=== PATIENT | female | born 1960 | race American Indian/Alaskan Native ===

== ENCOUNTER 2021-02-09 10:29 | Outpatient (CLI) | payer MEDICARE ==
--- NOTE | 2021-02-09 11:25 | XRay Report ---
CHEST PA AND LATERAL VIEWS INDICATION: SARCOIDOSIS. COMPARISON: None. FINDINGS: Support devices: None. Heart: Within normal limits. Mediastinal contour is normal. Lungs/Pleura: No acute pulmonary or pleural findings. IMPRESSION: 1. No significant abnormality. Signer Name: Marcos Robles MD Signed: 02/09/2021 11:21 AM Workstation Name: [id number]
== END 2021-02-09 10:30 | disposition home or self-care (01) ==
LOC: XRAY 10:29
PROVIDERS: ATTEND Internal Medicine
DX: D86.9 Sarcoidosis, unspecified (principal); R10.84 Generalized abdominal pain; Z79.899 Other long term (current) drug therapy
CPT/HCPCS: 36415; 71046; 74177; 80053; 81001; 82164; 84436; 84443; 85025; 87086; Q9967

== ENCOUNTER 2021-02-09 11:28 | Emergency (ER) | payer MEDICARE ==
[2021-02-09 11:35] VITALS: BP 148/82
[2021-02-09 12:22] LABS: Basophils # (Auto) 0.1 K/mm3 (0.0-0.1); Eosinophils # (Auto) 0.2 K/mm3 (0.0-0.4); Eosinophils % (Auto) 3.1 % (0.0-4.3); Hematocrit 42.8 % (30.3-42.9); Hemoglobin 14.1 gm/dl (10.1-14.3); Lymphocytes # (Auto) 1.7 K/mm3 (1.2-5.4); Lymphocytes % (Auto) 32.9 % (13.4-35.0); Mean Corpuscular HGB Conc 33 % (30-34); Mean Corpuscular Volume 88 fl (79-97); Monocytes # (Auto) 0.5 K/mm3 (0.0-0.8); Monocytes % (Auto) 10.7 % (0.0-7.3); Platelet Count 229 K/mm3 (140-440); Red Blood Count 4.87 M/mm3 (3.65-5.03); Red Cell Distribution Width 13.7 % (13.2-15.2)
[2021-02-09 12:26] LABS: Bilirubin,Urine NEG (Negative); Blood,Urine MOD (Negative); Color,Urine Yellow (Yellow); Protein,Urine <15 mg/dL mg/dL (Negative); Urobilinogen,Urine < 2.0 mg/dL (<2.0)
[2021-02-09 12:37] LABS: Alanine Aminotransferase 13 units/L (7-56); Albumin 4.5 g/dL (3.9-5); Blood Urea Nitrogen 8 mg/dL (7-17); Calcium 9.9 mg/dL (8.4-10.2); Hemolysis Index 7
[2021-02-09 12:38] LABS: BUN/Creatinine Ratio 13
--- NOTE | 2021-02-09 13:59 | Emergency Department Report ---
ED Abdominal Pain HPI - General Chief Complaint: Abdominal Pain Stated Complaint: STOMACH PAIN/SORENESS IN MOUTH Time Seen by Provider: 02/09/21 12:22 Source: patient Mode of arrival: Ambulatory Limitations: No Limitations - History of Present Illness Initial Comments: Patient is a 60-year-old female presents emergency with complaints of generalized abdominal pain that began a month ago. She states it is causing her to have a decreased appetite. She states that occasionally the pain is worse after eating. She states that she has asked medical history of GERD and had a scope performed approximately 3 years ago. She states that she has been taking omeprazole for a month without much relief. She denies any fever, nausea, vomiting, diarrhea, hematochezia, melena, hematemesis, urinary symptoms. Past medical history of sarcoidosis and neuropathy. No allergies to medications. She denies any past abdominal surgical history. - Related Data Home Medications Medication Instructions Recorded Confirmed Last Taken Alendronate Sodium 70 mg PO QDAY 10/25/15 10/25/15 Unknown Duloxetine HCl [DULoxetine] 30 mg PO QDAY 10/25/15 10/25/15 Unknown Fluticasone [Flonase] 1 spray NS QDAY 10/25/15 10/25/15 Unknown Previous Rx's Medication Instructions Recorded Last Taken Type Sucralfate [Carafate] 1 gm PO ACHS 7 Days #21 tablet 02/09/21 Unknown Rx cephALEXin [Keflex] 500 mg PO BID 7 Days #14 cap 02/09/21 Unknown Rx Allergies Allergy/AdvReac Type Severity Reaction Status Date / Time No Known Allergies Allergy Verified 02/09/21 11:32 ED Review of Systems ROS: Stated complaint: STOMACH PAIN/SORENESS IN MOUTH Other details as noted in HPI Comment: All other systems reviewed and negative ED Past Medical Hx - Past Medical History Additional medical history: SARCADOSIS, NEUROPATHY - Social History Smoking Status: Never Smoker Substance Use Type: None - Medications Home Medications: Home Medications Medication Instructions Recorded Confirmed Last Taken Type Alendronate Sodium 70 mg PO QDAY 10/25/15 10/25/15 Unknown History Duloxetine HCl [DULoxetine] 30 mg PO QDAY 10/25/15 10/25/15 Unknown History Fluticasone [Flonase] 1 spray NS QDAY 10/25/15 10/25/15 Unknown History Sucralfate [Carafate] 1 gm PO ACHS 7 Days #21 tablet 02/09/21 Unknown Rx cephALEXin [Keflex] 500 mg PO BID 7 Days #14 cap 02/09/21 Unknown Rx ED Physical Exam - General Limitations: No Limitations General appearance: alert, in no apparent distress - Head Head exam: Present: atraumatic, normocephalic - Eye Eye exam: Present: normal appearance - ENT ENT exam: Present: mucous membranes moist - Respiratory Respiratory exam: Present: normal lung sounds bilaterally. Absent: respiratory distress, wheezes, rales, rhonchi, stridor, chest wall tenderness, accessory muscle use, decreased breath sounds, prolonged expiratory - Cardiovascular Cardiovascular Exam: Present: regular rate, normal rhythm, normal heart sounds. Absent: systolic murmur, diastolic murmur, rubs, gallop - GI/Abdominal GI/Abdominal exam: Present: soft, tenderness (generalized upper), normal bowel s ounds. Absent: distended, guarding, rebound, rigid - Neurological Exam Neurological exam: Present: alert, oriented X3 - Psychiatric Psychiatric exam: Present: normal affect, normal mood - Skin Skin exam: Present: warm, dry, intact ED Course Vital Signs 02/09/21 11:34 Temperature 98.2 F Pulse Rate 73 Respiratory 20 Rate Blood Pressure 148/82 O2 Sat by Pulse 100 Oximetry ED Medical Decision Making - Lab Data Result diagrams: 02/09/21 11:52 02/09/21 11:52 Lab Results 02/09/21 02/09/21 02/09/21 Range/Units 11:52 11:52 11:53 WBC 5.1 (4.5-11.0) K/mm3 RBC 4.87 (3.65-5.03) M/mm3 Hgb 14.1 (10.1-14.3) gm/dl Hct 42.8 (30.3-42.9) % MCV 88 (79-97) fl MCH 29 (28-32) pg MCHC 33 (30-34) % RDW 13.7 (13.2-15.2) % Plt Count 229 (140-440) K/mm3 Lymph % (Auto) 32.9 (13.4-35.0) % [place] % (Auto) 10.7 H (0.0-7.3) % Eos % (Auto) 3.1 (0.0-4.3) % Baso % (Auto) 1.0 (0.0-1.8) % Lymph # (Auto) 1.7 (1.2-5.4) K/mm3 [place] # (Auto) 0.5 (0.0-0.8) K/mm3 Eos # (Auto) 0.2 (0.0-0.4) K/mm3 Baso # (Auto) 0.1 (0.0-0.1) K/mm3 Seg Neutrophils % 52.3 (40.0-70.0) % Seg Neutrophils # 2.7 (1.8-7.7) K/mm3 Sodium 141 (137-145) mmol/L Potassium 4.0 (3.6-5.0) mmol/L Chloride 101.7 (98-107) mmol/L Carbon Dioxide 28 (22-30) mmol/L Anion Gap 15 mmol/L BUN 8 (7-17) mg/dL Creatinine 0.6 (0.6-1.2) mg/dL Estimated GFR > 60 ml/min BUN/Creatinine Ratio 13 % Glucose 99 (65-100) mg/dL Calcium 9.9 (8.4-10.2) mg/dL Total Bilirubin 0.40 (0.1-1.2) mg/dL AST 17 (5-40) units/L ALT 13 (7-56) units/L Alkaline Phosphatase 100 (35-129) units/L Total Protein 7.2 (6.3-8.2) g/dL Albumin 4.5 (3.9-5) g/dL Albumin/Globulin Ratio 1.7 % Urine Color Yellow (Yellow) Urine Turbidity Clear (Clear) Urine pH 6.0 (5.0-7.0) Ur Specific [place] 1.014 (1.003-1.030) Urine Protein <15 mg/dl (Negative) mg/dL Urine Glucose (UA) Neg (Negative) mg/dL Urine Ketones Neg (Negative) mg/dL Urine Blood Mod (Negative) Urine Nitrite Neg (Negative) Urine Bilirubin Neg (Negative) Urine Urobilinogen < 2.0 (<2.0) mg/dL Ur Leukocyte Esterase Lg (Negative) Urine WBC (Auto) 21.0 H (0.0-6.0) /HPF Urine RBC (Auto) 13.0 (0.0-6.0) /HPF U Epithel Cells (Auto) < 1.0 (0-13.0) /HPF - Radiology Data Radiology results: report reviewed Ordering Physician: GENO JUAREZ Date of Service: 02/09/21 Procedure(s): CT abdomen pelvis w con Accession Number(s): [id number] cc: GENO JUAREZ CT ABDOMEN AND PELVIS WITH CONTRAST HISTORY: upper abd pain OMNI 300 100 ML COMPARISON: None. TECHNIQUE: Axial CT images were obtained through the abdomen and pelvis after 100 cc of IV contrast. Sagittal and coronal reformatted images. All CT scans at this location are performed using CT dose reduction for ALARA by means of automated exposure control. FINDINGS: CT ABDOMEN: Lung Bases: Clear. Liver: Scattered cysts are noted throughout the liver with the largest measuring 2.5 cm in the left hepatic lobe. No parenchymal disease or mass. Biliary: No significant abnormality. Spleen: No significant abnormality. Unenlarged. Pancreas: No significant abnormality. Adrenals: No significant abnormality. Kidneys: No significant abnormality. Lymphatics: No lymphadenopathy. Vasculature: No significant abnormality. Bowel/Peritoneum: No significant abnormality. No free air. No free fluid. Normal appendix. CT PELVIS: : No significant abnormality. Osseous Structures: Mild levocurvature of the lumbar spine with mild degenerative disc disease at L4-5. Additional Findings: None IMPRESSION: Scattered liver cysts, otherwise, unremarkable exam. No acute process or clear explanation for upper abdominal pain. Signer Name: Roger Verdin Jr, MD Signed: 02/09/2021 2:28 PM Workstation Name: [id number] Transcribed By: TTR Dictated By: ROGER VERDIN JR, MD Electronically Authenticated By: ROGER VERDIN JR, MD Signed Date/Time: 02/09/21 1428 DD/ 1418 TD/TT: Print - Medical Decision Making Patient is a 60-year-old female presents emergency with complaints of generalized abdominal pain that began a month ago. She states it is causing her to have a decreased appetite. She states that occasionally the pain is worse after eating. She states that she has asked medical history of GERD and had a scope performed approximately 3 years ago. She states that she has been taking omeprazole for a month without much relief. She denies any fever, nausea, vomiting, diarrhea, hematochezia, melena, hematemesis, urinary symptoms. Past medical history of sarcoidosis and neuropathy. No allergies to medications. She denies any past abdominal surgical history. Vitals are stable. On exam: Generalized upper abdominal tenderness palpation, no guarding, no rebound, no rigidity, normal bowel sounds, no peritoneal signs. Labs are normal. UA shows evidence of UTI. CT abdomen pelvis without contrast: Scattered liver cysts, otherwise, unremarkable exam. No acute process or clear explanation for upper abdominal pain. Discussed all results with patient answer questions. Patient given prescriptions. Discussed the importance of primary care and GI follow-up. Discussed return precautions. Advised patient Please take medication as prescribed. Increase your water intake. Follow-up with your primary care doctor. Follow-up with a GI doctor. Return to emergency room for any new or worsening symptoms. Critical care attestation.: If time is entered above; I have spent that time in minutes in the direct care of this critically ill patient, excluding procedure time. ED Disposition Clinical Impression: Liver cyst Abdominal pain Qualifiers: Abdominal location: upper abdomen, unspecified Qualified Code(s): R10.10 - Upper abdominal pain, unspecified UTI (urinary tract infection) Qualifiers: Urinary tract infection type: acute cystitis Hematuria presence: without hematuria Qualified Code(s): N30.00 - Acute cystitis without hematuria Disposition: TO HOME OR SELFCARE Is pt being admited?: No Does the pt Need Aspirin: No Condition: Stable Instructions: Abdominal Pain, Adult, Urinary Tract Infection, Adult, [id number], Abdominal Pain (ED) Additional Instructions: Please take medication as prescribed. Increase your water intake. Follow-up with your primary care doctor. Follow-up with a GI doctor. Return to emergency room for any new or worsening symptoms. Prescriptions: Sucralfate [Carafate] 1 gm PO ACHS 7 Days #21 tablet cephALEXin [Keflex] 500 mg PO BID 7 Days #14 cap Referrals: your, primary care doctor [Other] - 2-3 Days your, GI doctor [Other] - 2-3 Days Time of Disposition: 14:47 Print Language: SWAZI
--- NOTE | 2021-02-09 14:43 | Cat Scan Report ---
CT ABDOMEN AND PELVIS WITH CONTRAST HISTORY: upper abd pain OMNI 300 100 ML COMPARISON: None. TECHNIQUE: Axial CT images were obtained through the abdomen and pelvis after 100 cc of IV contrast. Sagittal and coronal reformatted images. All CT scans at this location are performed using CT dose re duction for ALARA by means of automated exposure control. FINDINGS: CT ABDOMEN: Lung Bases: Clear. Liver: Scattered cysts are noted throughout the liver with the largest measuring 2.5 cm in the left h epatic lobe. No parenchymal disease or mass. Biliary: No significant abnormality. Spleen: No significant abnormality. Unenlarged. Pancreas: No significant abnormality. Adrenals: No significant abnormality. Kidneys: No significant abnormality. Lymphatics: No lymphadenopathy. Vasculature: No significant abnormality. Bowel/Peritoneum: No significant abnormality. No free air. No free fluid. Normal appendix. CT PELVIS: : No significant abnormality. Osseous Structures: Mild levocurvature of the lumbar spine with mild degenerative disc disease at L4- 5. Additional Findings: None IMPRESSION: Scattered liver cysts, otherwise, unremarkable exam. No acute process or clear explanation for upper abdominal pain. Signer Name: Roger Verdin Jr, MD Signed: 02/09/2021 2:28 PM Workstation Name: [id number]
== END 2021-02-09 15:30 | disposition home or self-care (01) ==
LOC: ED 11:28
DX: N39.0 Urinary tract infection, site not specified (principal); K76.89 Other specified diseases of liver; R10.84 Generalized abdominal pain; Z79.899 Other long term (current) drug therapy
CPT/HCPCS: 36415; 74177; 80053; 81001; 85025; 87086; Q9967